=== PATIENT | male | born 1980 | race Caucasian/White ===

== ENCOUNTER → 2018-01-08 | Outpatient (CLI) | payer OTHER ==
[~2018-01-08] MED LIST: CELEBREX100 MG PO; FLONASE16 GM; GLIPIZIDE5 MG PO; LORAZEPAM2 MG PO; LYRICA75 MG PO; NEXIUM40 MG PO; NORCO 10-325 T1 EACH PO; ZOLOFT100 MG PO; farxiga PO
--- NOTE | 2018-01-08 18:27 | Diagnostic Imaging Report ---
Examination: MRI BRAIN WITHOUT CONTRAST History: Head and neck pain. Head trauma. Comparison studies: The images of the head CT performed on May 01, 2015 are inaccessible at this time, but the report is available for review. Technique: Sagittal T2; axial DWI, FLAIR, GRE or SWI, T1, Coronal FLAIR. Intravenous contrast: None Findings: Scalp: No abnormal signal. No masses. Bone marrow: Normal in signal intensity. Brain volume: Adequate for age. No volume loss. Ventricles: Normal in size and configuration. No hydrocephalus. Extra-axial spaces: No abnormalities. Parenchyma: No abnormal signal intensities. No masses, hemorrhage, or acute or chronic vascular insults. Suprasellar and sellar region: No abnormalities. Craniocervical junction: No abnormalities. The foramen magnum is patent. No Chiari malformations. Vessels: Normal flow-voids in the arteries and sinuses. Additional findings:Retention cysts within the bilateral maxillary and right frontal sinuses. Mild inflammatory mucosal thickening of the bilateral frontal sinuses and ethmoid air cells.. IMPRESSION: No intracranial abnormalities. Based on prior head CT report (May 01, 2015), there is no change. Signed by: Dr. Yecenia Ford M.D. on 01/08/2018 6:23 PM
== END ==
LOC: MRI 15:57
PROVIDERS: ATTEND Family Medicine
DX: F07.81 Postconcussional syndrome (principal); S16.1XXA Strain of muscle, fascia and tendon at neck level, initial encounter; S09.90XA Unspecified injury of head, initial encounter
CPT/HCPCS: 70551

== ENCOUNTER 2018-02-08 07:55 | Observation (INO) | payer OTHER ==
[2018-02-07 14:36] LABS: BASOPHILS # (AUTO) 0.1 (0.0-0.1); BASOPHILS % 0.6 % (0.0-1.0); EOSINOPHILS # (AUTO) 0.4 (0.0-0.4); EOSINOPHILS % 3.4 % (0.0-6.0); HEMATOCRIT 50.4 % (38.2-49.6); HEMOGLOBIN 16.8 g/dL (14.0-18.0); LYMPHOCYTES # (AUTO) 2.8 (1.0-3.2); LYMPHOCYTES % 21.5 % (18.0-39.1); MEAN CORPUSCULAR HEMOGLOBIN 28.6 pg (28-32); MEAN CORPUSCULAR HGB CONC 33.3 g/dL (31-35); MEAN CORPUSCULAR VOLUME 85.7 fL (81-99); MONOCYTES # (AUTO) 0.7 (0.2-0.8); MONOCYTES % 5.5 % (4.4-11.3); NEUTROPHILS # (AUTO) 8.8 (2.1-6.9); NEUTROPHILS % 68.7 % (38.7-80.0); PLATELET COUNT 234 x10e3/uL (140-360); RED BLOOD COUNT 5.88 x10e6/uL (4.3-5.7); RED CELL DISTRIBUTION WIDTH 14.5 % (11.7-14.4)
[2018-02-07 14:44] LABS: ANION GAP 12.5 mmol/L (8-16); BLOOD UREA NITROGEN 20 mg/dL (7-26); BUN/CREATININE RATIO 23 (6-25); CALCIUM 9.1 mg/dL (8.4-10.2); CARBON DIOXIDE 26 mmol/L (22-29); CHLORIDE 104 mmol/L (98-107); CREATININE, SERUM 0.86 mg/dL (0.72-1.25); EST GLOMERULAR FILTRATION RATE > 60 ML/MIN (60-); GLUCOSE 118 mg/dL (74-118); POTASSIUM 4.5 mmol/L (3.5-5.1); SODIUM 138 mmol/L (136-145)
--- NOTE | 2018-02-07 15:57 | Diagnostic Imaging Report ---
PROCEDURE: Frontal and lateral views of the chest. COMPARISON: None. INDICATIONS: PRE-OPERATIVE CHEST X-RAY FOR CERVICAL SPINE SURGERY FINDINGS: Lines/tubes: None. Lungs: The lungs are well inflated and clear. There is no evidence of pneumonia or pulmonary edema. Pleura: There is no pleural effusion or pneumothorax. Heart and mediastinum: The heart and the mediastinum are normal. Bones: No acute bony abnormality. Degenerative changes in the thoracic spine. IMPRESSION: 1. No acute cardiopulmonary abnormalities. Ellis Garcia M.D. Dictated by: Ellis Garcia M.D. on 02/07/2018 at 15:57 Electronically approved by: Ellis Garcia M.D. on 02/07/2018 at 15:57
[2018-02-07 16:07] LABS: INR 1.03; PARTIAL THROMBOPLASTIN TIME 29.9 seconds (23.8-35.5); PROTHROMBIN TIME 12.7 seconds (11.9-14.5)
[~2018-02-08] VITALS: Ht 180.3 cm; Wt 137.0 kg
[~2018-02-08 07:55] MED LIST changes: +BACITRACIN 50,000 UNIT VIAL ONE; +BUPIVACAINE 0.5%/EPI 30 ML SDV INJ ONE; +CEFAZOLIN SOD 2 GM/D5W 50ML 50 ML IV ONE; +CHLORZOXAZONE500 MG PO; +DIAZEPAM10 MG PO; +GELATIN SPONGE SZ 100 ONE; +IMITREX50 MG PO; +LIDOCAINE HCL (LTA) 4 ML SOLN ONE; +METFORMIN HCL1000 MG PO; +PROPRANOLOL HCL60 MG PO; +THROMBIN FOR SOLN 5,000 UNIT VIAL ONE; +VICTOZA 3-0.6 MG/0.1 INJ
--- OUTSIDE RECORDS SUMMARY | 2018-02-08 07:56 | XMS REPORT ---
Author [facility] Address Unknown Phone Unavailable Care Team Providers Care Hook Tender Name Role Phone UNKNOWN, REFFERING PP Unavailable ISRAEL NEVILLE Unavailable Unavailable ZOFIA DALEY Unavailable Unavailable ANTHONY, LOGAN Unavailable Unavailable Problems This patient has no known problems. Allergies, Adverse Reactions, Alerts This patient has no known allergies or adverse reactions. Medications This patient has no known medications. Results Test Description Test Time Test Comments Text Results Atomic Results Result Comments POC Glucose, Blood 2017-07-28 17:55:00 POC Glucose (test code=POCGLUC) 103 mg/dL 70-115 If you consider your patient critically ill, the Kristina Accu-Chek InformII metershould not be used for Glucose determinations.Draw a venous Glucose and send to the Main Lab for Analysis. POC Glucose, [id number] 15:54:00* Test Item Value Reference Range Comments POC Glucose (test code=POCGLUC) 103 mg/dL 70-115 If you consider your patient critically ill, the Kristina Accu-Chek InformII metershould not be used for Glucose determinations.Draw a venous Glucose and send to the Main Lab for Analysis. CHEST 2 VIEWS [place] [id number] [place] [address] Patient Name: RONALDO BILL MR #: [id number] : 1980 Age/Sex: 37/M Req #: [id number] Adm Physician: Ordered by: ISRAEL NEVILLE MD Report #: [id number] Location: OR Room/Bed: Procedure: [id number] DX/CHEST 2 VIEWS Exam Date: 02/07/18 Exam Time: 5 REPORT STATUS: Signed PROCEDURE: Frontal and lateral views of the chest. COMPARISON: None. INDICATIONS: PRE-OPERATIVE CHEST X- RAY FOR CERVICAL SPINE SURGERY FINDINGS: Lines/tubes: None. Lungs: The lungs are well inflated and clear. There is no evidence of pneumonia or pulmonary edema. Pleura: There is no pleural effusion or pneumothorax. Heart and mediastinum: The heart and the mediastinum are normal. Bones: No acute bony abnormality. Degenerative changes in the thoracic spine. IMPRESSION: 1. No acute cardiopulmonary abnormalities. Sukumar Garcia M.D. Dictated by: Sukumar Garcia M.D. on 02/07/2018 at 15:57 Electronically approved by: Sukumar Garcia M.D. on 02/07/2018 at 15:57 Dictated By: SUKUMAR GARCIA MD 56 Transcribed By: NICHOLAS on 02/07/181556 COPY TO: ISRAEL NEVILLE MD MRI BRAIN WO [place] [address] Patient Name: RONALDO BILL MR #: [id number] : 1980 Age/Sex: 37/M Req #: [id number] Adm Physician: Ordered by: ZOFIA DALEY DO Report #: [id number] Location: MRI Room/Bed: Procedure: [id number] MRI/ MRI BRAIN WO Exam Date: Exam Time: REPORT STATUS: Signed Examination: MRI BRAIN WITHOUT CONTRAST History: Head and neck pain. Head trauma. Comparison studies: The images of the head CT performed on May 01, 2015 are inaccessible at this time, but the report is available for review. Technique: Sagittal T2; axial DWI, FLAIR, GRE or SWI, T1, Coronal FLAIR. Intravenous contrast: None Findings: Scalp: No abnormal signal. No masses. Bone marrow: Normal in signal intensity. Brain volume: Adequate for age. No volume loss. Ventricles: Normal in size and configuration. No hydrocephalus. Extra-axial spaces: No abnormalities. Parenchyma: No abnormal signal intensities. No masses, hemorrhage, or acute or chronic vascular insults. Suprasellar and sellar region: No abnormalities. Craniocervical junction: No abnormalities. The foramen magnum is patent. No Chiari malformations. Vessels: Normal flow- voids in the arteries and sinuses. Additional findings:Retention cysts within the bilateral maxillary and right frontal sinuses. Mild inflammatory mucosal thickening of the bilateral frontal sinuses and ethmoid air cells.. IMPRESSION: No intracranial abnormalities. Based on prior head CT report (May 01, 2015), there is no change. Signed by: Dr. Yecenia Ford M.D. on 01/08/2018 6:23 PM Dictated By: YECENIA PUTNAM MD 22 Transcribed By: RIDGE on 01/08/181822 COPY TO: ZOFIA DALEY DO
[2018-02-08] MEDS ORDERED: LACTATED RINGER'S 1,000 ML IV SCH (11:34)
[2018-02-08] MEDS ORDERED: HYDROMORPHONE 2MG/ML INJ IV PRN (11:45)
[2018-02-08] MEDS ORDERED: NON-FORMULARY MEDICATION (Diazepam 10 MG) PO SCH (11:45)
[2018-02-08] MEDS ORDERED: LORAZEPAM 2 MG PO SCH (11:45)
[2018-02-08] MEDS ORDERED: ZOLPIDEM TARTRATE 5 MG TAB PO PRN (11:45)
[2018-02-08] MEDS ORDERED: MAGNESIUM/ALUMINUM/SIMETHICONE 30 ML UDC PO PRN (11:45)
[2018-02-08] MEDS ORDERED: PROMETHAZINE HCL (IM) 25 MG/ML VIAL IM PRN (11:45)
[2018-02-08] MEDS ORDERED: ACETAMINOPHEN 325 MG TAB PO PRN (11:45)
[2018-02-08] MEDS ORDERED: SUMATRIPTAN SUCCINATE 50 MG PO SCH (11:45)
[2018-02-08] MEDS ORDERED: MORPHINE SULFATE 5 MG/ML VIAL IM PRN (11:45)
[2018-02-08] MEDS ORDERED: CHLORZOXAZONE 500 MG PO SCH (11:45)
[2018-02-08] MEDS ORDERED: ONDANSETRON HCL INJ 2 MG/ML VIAL IV PRN (11:45)
[2018-02-08] MEDS ORDERED: FENTANYL CITRATE/PF 100MCG/2 ML INJ ONE ×2 (12:05→18:07)
[2018-02-08] MEDS ORDERED: SUMATRIPTAN SUCCINATE 25 MG TAB PO PRN (12:15)
[2018-02-08] MEDS ORDERED: DIAZEPAM 5 MG TAB PO PRN (12:15)
[2018-02-08] MEDS ORDERED: LORAZEPAM 1 MG TAB PO PRN (12:15)
[2018-02-08] MEDS ORDERED: LIRAGLUTIDE INJ PRN (12:30)
[2018-02-08] MEDS ORDERED: CHLORZOXAZONE PO PRN (12:30)
[2018-02-08 13:19] VITALS: BP 111/60
[2018-02-08] MEDS: OXYCODONE/ACETAMINOPHEN 5-325 1 EACH TABLET PO PRN ×3 (13:55→20:17)
[2018-02-08] MEDS ORDERED: CEFAZOLIN SOD 1 GM/NS 50ML 50 ML IV SCH (14:00)
[2018-02-08] MEDS: CARISOPRODOL 350 MG TAB PO PRN ×2 (14:02→19:05)
[2018-02-08 15:30] VITALS: BP 111/60
[2018-02-08 16:18] VITALS: BP 117/65
[2018-02-08] MEDS: GLIPIZIDE 5 MG TAB PO SCH (16:29)
[2018-02-08] MEDS: METFORMIN HCL 500 MG TAB CR PO SCH (16:29)
[2018-02-08] MEDS: PROPRANOLOL HCL 60 MG ER CAP PO SCH (16:29)
[2018-02-08] MEDS: CELECOXIB 200 MG CAP PO SCH (16:29)
--- NOTE | 2018-02-08 16:33 | Operative Report ---
DATE OF PROCEDURE: February 08, 2018 PREOPERATIVE DIAGNOSIS: C6-7 disk herniation with radiculopathy, M50.123. POSTOPERATIVE DIAGNOSIS: C6-7 disk herniation with radiculopathy, M50.123. PROCEDURES: 1. C6-7 anterior cervical diskectomy and microsurgical osteophyte resection and allograft fusion, 96157. 2. Preparation of MTF cortical cancellous allograft, 39401. 3. C6-7 anterior cervical plating with Synthes ZP endplate, 57934. ANESTHESIA: General. INDICATIONS: Patient is a man who presents with a C6-7 disk herniation with cervical radiculopathy on the left side that was taken to operating room for anterior cervical decompression and fusion. PROCEDURE: After induction of anesthesia, the patient was placed on the operating table in supine position. The right side of the neck was prepped and draped in sterile fashion. The fluoroscopic C-arm was positioned cross-table lateral orientation. A transverse incision was created on right side of the neck superimposed on the C6-7 disk space as determined by fluoroscopy. The platysma was divided in line with the incision. A subplatysmal dissection was carried out. An avascular plane of dissection was developed medial to the sternocleidomastoid muscle and was followed medial to the carotid sheath to the anterior border of the cervical spine. The deep cervical fascia was opened. The esophagus was retracted to the left. The attachments of longus colli muscles to the anterolateral aspects of vertebral bodies of C6 and C7 were divided. The anterior longitudinal ligament was resected. Dexter posts were inserted into C6 and C7. The Dexter distractor was used to distract the disk space. The anterior annulus of the disk was incised with a number 11 blade and the contents of the disks were thoroughly evacuated with angled curets and pituitary rongeurs. The posterior osteophytes were meticulously drilled with a 2 mm cutting bur until they were completely removed. The posterior annulus of the disk, herniated disk material, and the posterior longitudinal ligament were resected layer by layer until the dura was fully exposed and decompressed. The medial aspects of the uncinate processes were resected with particular attention given to the left side to fully expose and decompress the left C7 nerve root origin. After satisfactory decompression had been achieved, the endplates were prepared for fusion. The disk space was sized and found to be 9 mm in height. A piece of MTF cortical cancellous allograft measuring 9 mm was selected and prepared in saline and loaded onto a Synthes ZP endplate. The construct was inserted into the C6-7 disk space under distraction and fluoroscopic guidance and tamped in place until the plate was flush with the anterior margin of the vertebral bodies. The plate was then screwed to the endplates of C6 and C7 with 2 pairs of 16 mm screws. All screws were locked. An excellent construct was obtained. The wound was copiously irrigated with Bacitracin solution. Meticulous hemostasis was secured. Retractor was removed. The platysma was closed with 3-0 Vicryl sutures. The skin was closed with 4-0 Monocryl sutures in subcuticular fashion. Steri-Strips and dressing were applied. The patient was awakened, extubated, and taken to post anesthesia care unit in stable condition. No intraoperative complications were encountered. Estimated blood loss was 50 mL. Job#: [id number] EVERARDO
[2018-02-08] MEDS ORDERED: NON-FORMULARY MEDICATION (Metformin Hcl 1,000 MG) PO SCH (17:00)
[2018-02-08] MEDS: CEFAZOLIN SOD 1 GM VIAL IV SCH (17:00)
[2018-02-08] MEDS ORDERED: DEXAMETHASONE SOD PHOS INJ 4 MG/ML VIAL ONE (17:49)
[2018-02-08] MEDS ORDERED: PROPOFOL IV EMULSION 10 MG/ML 20 ML VIAL ONE (17:49)
[2018-02-08] MEDS ORDERED: ONDANSETRON HCL INJ 2 MG/ML VIAL ONE (17:49)
[2018-02-08] MEDS ORDERED: LIDOCAINE HCL 2% JELLY 5 ML TUBE ONE (17:49)
[2018-02-08] MEDS ORDERED: ROCURONIUM BROMIDE 10 MG/ML 5ML VIAL ONE (17:49)
[2018-02-08] MEDS ORDERED: LIDOCAINE HCL 2% LOCAL INJ 5 ML SDV VIAL INJ ONE (17:49)
[2018-02-08] MEDS ORDERED: DESFLURANE 240 ML BTL INH ONE (17:49)
[2018-02-08] MEDS ORDERED: NEOSTIGMINE 5 MG/5ML SYR ONE (17:49)
[2018-02-08] MEDS ORDERED: GLYCOPYRROLATE INJ 1MG/ 5 ML SYR ONE (17:49)
[2018-02-08] MEDS ORDERED: MIDAZOLAM HCL 2 MG/2 ML VIAL ONE (18:07)
[2018-02-08] MEDS ORDERED: NICOTINE 21 MG/EA PATCH TOP PRN (19:15)
[2018-02-08 20:00] VITALS: BP 118/63
[2018-02-08 21:00] VITALS: BP 118/63
[2018-02-08 23:45] VITALS: BP 124/69
[2018-02-09] MEDS: CEFAZOLIN SOD 1 GM VIAL IV SCH ×2 (01:52→10:05)
[2018-02-09] MEDS: CEPACOL SORE THROAT LOZENGES PO PRN ×2 (04:04→06:43)
[2018-02-09 04:05] VITALS: BP 116/63
[2018-02-09] MEDS: OXYCODONE/ACETAMINOPHEN 5-325 1 EACH TABLET PO PRN (06:43)
--- NOTE | 2018-02-09 07:01 | Diagnostic Imaging Report ---
C-SPINE 2 VIEWS AP LATERAL HISTORY: Postsurgical cervical spine COMPARISON: None FINDINGS: Bones: Patient is status post anterior fusion and stabilization of the cervicothoracic spine at C6-7. No displaced fracture. Osseous alignment is within normal limits. Joints: The joint spaces are well-maintained. Intervertebral disc spacer at C6-7 Soft tissues: Minimal prevertebral soft tissue edema IMPRESSION: No acute radiographic abnormality. Postsurgical cervical spine Signed by: Dr. Kedar Lopes M.D. on 02/09/2018 6:58 AM
[2018-02-09] MEDS: METFORMIN HCL 500 MG TAB CR PO SCH (08:29)
[2018-02-09] MEDS: CELECOXIB 200 MG CAP PO SCH (08:29)
[2018-02-09] MEDS: GLIPIZIDE 5 MG TAB PO SCH (08:29)
[2018-02-09] MEDS: PROPRANOLOL HCL 60 MG ER CAP PO SCH (08:29)
[2018-02-09 08:34] VITALS: BP 109/61
[2018-02-09] MEDS ORDERED: PANTOPRAZOLE SOD 40 MG TABEC PO SCH (09:00)
[2018-02-09] MEDS ORDERED: SERTRALINE HCL 100 MG TAB PO SCH (09:00)
[2018-02-09] MEDS ORDERED: FARXIGA PO SCH (09:00)
[2018-02-09] MEDS ORDERED: NON-FORMULARY MEDICATION (Liraglutide (Victoza 3-Pak) 1.8 MG) INJ SCH (09:00)
[2018-02-09] MEDS ORDERED: CELECOXIB 100 MG CAP PO SCH (09:00)
[2018-02-09] MEDS ORDERED: NORCO 7.5-3251 EACH PO (09:36)
== END 2018-02-09 11:22 | disposition home or self-care (01) ==
LOC: OR 07:55 → IMCU 12:50
PROVIDERS: ADMIT Neurological Surgery; ATTEND Neurological Surgery
DX: M50.123 Cervical disc disorder at C6-C7 level with radiculopathy (principal); E66.9 Obesity, unspecified; Z68.41 Body mass index [BMI] 40.0-44.9, adult; E11.9 Type 2 diabetes mellitus without complications; F17.210 Nicotine dependence, cigarettes, uncomplicated
CPT/HCPCS: 20931; 22551; 22845; 36415 ×3; 71046; 72040; 77003; 80048; 82948 ×2; 85025; 85610; 85730; 86850; 86900; 88304; 93005; G0378 ×2; J0690 ×2; J1100; J2001 ×2; J2250; J2405; C9359; J2270

== ENCOUNTER → 2018-03-08 | Outpatient (CLI) | payer BC, OTHER ==
[~2018-03-08] MED LIST changes: -BACITRACIN 50,000 UNIT VIAL ONE; -BUPIVACAINE 0.5%/EPI 30 ML SDV INJ ONE; -CEFAZOLIN SOD 2 GM/D5W 50ML 50 ML IV ONE; -GELATIN SPONGE SZ 100 ONE; -LIDOCAINE HCL (LTA) 4 ML SOLN ONE; +NORCO 7.5-3251 EACH PO; -THROMBIN FOR SOLN 5,000 UNIT VIAL ONE
--- NOTE | 2018-03-08 17:09 | Diagnostic Imaging Report ---
PROCEDURE:C-SPINE AP AND LAT WITH FLEX AND EXT COMPARISON:02/09/2018 INDICATIONS:POST FUSION FINDINGS: 5 views of the cervical spine (AP, lateral neutral, lateral extension, lateral flexion, odontoid view). The lateral view is visualized from the skull base to the top of C7. There has been an anterior discectomy and fusion at C6-C7. The vertebral bodies are well-aligned on the neutral view. There is about 2 mm of anterior subluxation of C3 on C4 on the flexion view. Otherwise no evidence of hypermobility There are no fractures, lytic or blastic lesions. The C1/C2-odontoid interval is normal. The pre-vertebral soft tissues are normal. CONCLUSION: Postsurgical changes of anterior discectomy and fusion at C6-C7. No evidence of loosening or other hardware complication. Minimal anterior subluxation of C3 on C4 on flexion view. Otherwise no evidence of hypermobility. Dictated by: Rich Caldwell M.D. on 03/08/2018 at 17:10 Electronically approved by: Rich Caldwell M.D. on 03/08/2018 at 17:10
== END ==
LOC: RAD 15:51
PROVIDERS: ATTEND Neurological Surgery
DX: M50.20 Other cervical disc displacement, unspecified cervical region (principal); Z98.1 Arthrodesis status
CPT/HCPCS: 72050

== ENCOUNTER → 2018-03-27 | Outpatient (CLI) | payer OTHER ==
--- NOTE | 2018-03-28 12:34 | Diagnostic Imaging Report ---
PROCEDURE: C-SPINE FLEX AND EXT COMPARISON: Patients [facility], DX, SPINE CERVICAL AP\T\LAT FLEX\T\EXT, 03/08/2018, 16:17. INDICATIONS: S/P CERVICAL FUSION FINDINGS: C1 through C7 are visualized on the lateral view. Mild reversal of the cervical lordosis may be related muscle spasm or positioning. Re-demonstration of status post anterior fusion of C6-C7 with metallic plate and transfixing screws which are intact and in adequate alignment. Flexion and extension views demonstrate no change in alignment. The prevertebral soft tissues are not swollen. CONCLUSION: Re-demonstration of status post anterior fusion of C6-C7. Intact hardware with adequate alignment. Angela Lopez M.D. Dictated by: Angela Lopez M.D. on 03/28/2018 at 12:36 Electronically approved by: Angela Lopez M.D. on 03/28/2018 at 12:36
== END ==
LOC: RAD 14:15
PROVIDERS: ATTEND Neurological Surgery
DX: M50.123 Cervical disc disorder at C6-C7 level with radiculopathy (principal)
CPT/HCPCS: 72052

== ENCOUNTER 2020-04-10 00:02 | Emergency (ER) | payer SELFPAY ==
[~2020-04-10] VITALS: Ht 180.3 cm; Wt 146.5 kg
--- OUTSIDE RECORDS SUMMARY | 2020-04-10 00:07 | XMS REPORT | Summary of Care ---
Author Author RONALDO KIRAN M.D. Organization Unknown Address [facility] Phone Unavailable Care Team Providers Care Aniline Press Worker Name Role Phone ZOFIA KIRAN M.D. Unavailable Unavailable DARYA PENA M.D. Unavailable Unavailable ZOFIA DALEY DO Unavailable Unavailable ZOFIA KIRAN JR, MD Unavailable Unavailable Unavailable Unavailable Functional Status Name Dates Details Functional status health issues are not documented Status: Name Dates Details Cognitive status health issues are not d ocumented Status: Problems Name Dates Details Hand pain, left (729.5, M79.642) Status: Active Carpal tunnel syndrome (354.0, G56.00) Status: Active Acute pain of left knee (719.46, M25.562 ) Status: Active Injury of posterior cruciate ligament of left knee, initial encounter (959.7, S89.92XA) Status: Active Tear of medial meniscus of left knee, cu rrent, unspecified tear type, initial encounter (836.0, S83.242A) Status: Active Sprain of posterior cruciate ligament of left knee, initial encounter (844.2, S83.522A) Status: Active Vestibular dysfunction (386.50, H83.2X9) Status: Active 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 Quantity: 30 DARYA PENA M.D. * Start : 14-Jul-2015 Active Lyrica 300 MG Oral Capsule * Refills: 0 Active CeleBREX 400 MG Oral Capsule * Refills: 0 Active Farxiga 5 MG Oral Tablet * Refills: 0 Active glipiZIDE ER 10 MG Oral Tablet Extended Release 24 Hour * Refills: 0 Active Zoloft 100 MG Oral Tablet * Refills: 0 Active Sertraline HCl TABS * Refills: 0 Active LORazepam 2 MG Oral Tablet * Refills: 0 Active Skelaxin 800 MG Oral Tablet * Refills: 0 Active metFORMIN HCl - 1000 MG Oral Tablet * Refills: 0 Active glipiZIDE XL TB24 * Refills: 0 Active Pantoprazole Sodium 40 MG Oral Tablet Delayed Release * Refills: 0 Active Topiramate 50 MG Oral Tablet * Refills: 0 Active Mirtazapine 30 MG Oral Tablet * Refills: 0 Active Amitriptyline HCl - 50 MG Oral Tablet * Refills: 0 Active Lyrica 300 MG Oral Capsule * Refills: 0 Active traMADol-Acetaminophen TABS * Refills: 0 Active Phenergan 25 MG TABS * Refills: 0 Active SUMAtriptan Succinate 50 MG Oral Tablet * Refills: 0 Active Allergies and Adverse Reactions Name Dates Details No Known Drug Allergies (Allergy) Status : Active Past Medical History Name Dates Details History of Back pain (724.5, M54.9) Status: Resolved History of Depression (311, F32.9) Status: Resolved History of Diabetes (250.00, E11.9) Status: Resolved Procedures Procedure Dates Details [U] XRAY KNEE 3 VWS LEFT [id number] Date: 10-Jul-2019 History of Carpal tunnel surgery Complet ed History of Cervical surgery Completed Immunization Name Dates Details Immunizations not documented Social History Name Dates Details - Status: Name Dates Details Current every day smoker Vital Signs Date Test Result Details No Known Vitals to report Results Date Description Value Details Results not documented Plan of Care Name Dates Details Planned Observations Planned Goals not documented Planned Encounters Appointment; ZOFIA KIRAN M.D. On: 05-Sep-2019 11:15 Interventions Provided Plan* Patient Education/Instructions: * Patient Education Provided * Reassurance * Counseling Provided. * MRI report reviewed and finding discussed with patient and family. * Surgery-risks, benefits, and alternatives were discussed with pt regarding operative intervention. Risks include but are not limited to pain, bleeding, scarring, infection, damage to nerves, arteries, veins, failure of procedure need for further procedures, nonunion, malunion, dislocation, loss of limb, heart attack, stroke and . Patient voiced understanding and wishes to proceed with operative intervention. * Weightbearing status:. * Patient/Parent to call or return with any abnormal changes * Apply Ice as Instructed * DME Orders: * Knee Brace * Walker/Crutches * NOT @ [facility] * Orders: * Physical Therapy * Medications:. * Referrals: * Refer to: ENT. * Reason: * Evaluate and treat. * Surgery: DISCUSSED LT KNEE SCOPE MMR * Follow Up: * Return to the clinic after testing or as needed. * Patient seen and examined by Physician. * Xray's reviewed with Physician Instructions Name Dates Details Instructions not documented Encounters Appointment; ZOFIA KIRAN M.D. Encounter Diagnosis: Problem not documented On: 11-Jul-2019 13:30 Appointment; ZOFIA KIRAN M.D. Encounter Diagnosis: Problem not documented On: 12-Aug-2019 11:00
--- OUTSIDE RECORDS SUMMARY | 2020-04-10 00:07 | XMS REPORT | Continuity of Care Document ---
Author Author [facility] t Organization [facility] Address [address] [place] [address] Phone Unavailable Care Team Providers Care Road Mender Name Role Phone JARED ROMERO, A ROBBIE PCP Unavailable ZOFIA KIRAN M.D. Attphys Unavailable SYDNEY, DR TRENT Attceli Unavailable ISRAEL NEVILLE Attphys Unavailable ZOFIA DALEY Attphys Unavailable LOGAN CRUZ Attphys Unavailable SYDNEY, DR TRENT Admphys Unavailable PAKZAASHLEY, ISRAEL Admphys Unavailable ANTHONY LOGAN Admphys Unavailable Payers Payer Name Policy Type Policy Number Effective Date Expiration Date Jovana boone [email or web address] [id number] 2017 00:00:00 [facility] Problems Condition Name Condition Details Condition Category Status Onset Date Resolution Date Last Treatment Date Treating Clinician Comments Source Hand pain, left Hand pain, left Problem Active [facility] Carpal tunnel syndrome Carpal tunnel syndrome Problem Active [facility] Acute pain of left knee Acute pain of left knee Problem Active [facility] Vestibular dysfunction Vestibular dysfunction Problem Active [facility] Tear of medial meniscus of left knee, cu rrent, unspecified tear type, initial encounter Tear of medial meniscus of left knee, cu rrent, unspecified tear type, initial encounter Problem Active [facility] Injury of posterior cruciate ligament of left knee, in itial encounter Injury of posterior cruciate ligament of left knee, initial encounter Problem Active [facility] History of Back pain History of Back pain Problem Resolved [facility] History of Depression History of Depression Problem Resolved [facility] History of Diabetes History of Diabetes Problem Resolved [facility] Sprain of posterior cruciate ligament of left knee, in itial encounter Sprain of posterior cruciate ligament of left knee, initial encounter Problem Active [facility] Maltracking of left patella Maltracking of left patella Problem Active [facility] Allergies, Adverse Reactions, Alerts This patient has no known allergies or adverse reactions. Social History Smoking Status Start Date Stop Date Source Current every day smoker [facility] Medications Ordered Medication Name Filled Medication Name Start Date Stop Da te Current Medication? Ordering Clinician Indication Dosage Frequency Signature (SIG) Comments Components Source Meloxicam 7.5 MG Oral Tablet Meloxicam 7.5 MG Oral Tablet 2015-07- 8 00:00:00 Yes DARYA PENA M.D. 1 QD TAKE 1 TABLET DAILY. [facility] Lyrica 300 MG Oral Capsule Lyrica 300 MG Oral Capsule Yes [facility] CeleBREX 400 MG Oral Capsule CeleBREX 400 MG Oral Capsule Yes [facility] Farxiga 5 MG Oral Tablet Farxiga 5 MG Oral Tablet Yes [facility] glipiZIDE ER 10 MG Oral Tablet Extended Release 24 Selina r glipiZIDE ER 10 MG Oral Tablet Extended Release 24 Hour Yes [facility] Zoloft 100 MG Oral Tablet Zoloft 100 MG Oral Tablet Yes [facility] Sertraline HCl TABS Sertraline HCl TABS Yes [facility] LORazepam 2 MG Oral Tablet LORazepam 2 MG Oral Tablet Yes [facility] Skelaxin 800 MG Oral Tablet Skelaxin 800 MG Oral Tablet Yes [facility] metFORMIN HCl - 1000 MG Oral Tablet metFORMIN HCl - 1000 MG Oral Tabl et Yes [facility] glipiZIDE XL TB24 glipiZIDE XL TB24 Yes [facility] Pantoprazole Sodium 40 MG Oral Tablet Delayed Release Pantoprazole Sodium 40 MG Oral Tablet Delayed Release Yes [facility] Topiramate 50 MG Oral Tablet Topiramate 50 MG Oral Tablet Yes [facility] Mirtazapine 30 MG Oral Tablet Mirtazapine 30 MG Oral Tablet Ye s [facility] Amitriptyline HCl - 50 MG Oral Tablet Amitriptyline HCl - 50 MG Ora l Tablet Yes [facility] Lyrica 300 MG Oral Capsule Lyrica 300 MG Oral Capsule Yes [facility] traMADol-Acetaminophen TABS traMADol-Acetaminophen TABS Yes [facility] Phenergan 25 MG TABS Phenergan 25 MG TABS Yes [facility] SUMAtriptan Succinate 50 MG Oral Tablet SUMAtriptan Succinat e 50 MG Oral Tablet Yes [facility] Celecoxib (Celebrex*) 100 Mg Capsule Celecoxib (Celebrex*) 100 Mg C apsule Yes 400 Daily [facility] Chlorzoxazone 500 Mg Tablet Chlorzoxazone 500 Mg Tablet Yes 500 As Needed [facility] Diazepam 10 Mg Tablet Diazepam 10 Mg Tablet Yes 10 As Needed [facility] Esomeprazole Magnesium (Nexium) 40 Mg Capsule.dr Barrera prazole Magnesium (Nexium) 40 Mg Capsule. Yes 40 Daily [facility] Farxiga Farxiga Yes 10 Daily [facility] Glipizide 5 Mg Tablet Glipizide 5 Mg Tablet Yes 10 Twice A Day [facility] Hydrocodone Bit/Acetaminophen (Hopkins 7.5-325 Tablet) 1 Each Tablet Hydrocodone Bit/Acetaminophen (Hopkins 7.5-325 Tablet) 1 Each Tablet Yes 1 Every 6 Hours as needed for Pain [facility] Hydrocodone Bit/Acetaminophen (Hopkins 7.5-325 Tablet) 1 Each Tablet Hydrocodone Bit/Acetaminophen (Hopkins 7.5-325 Tablet) 1 Each Tablet Yes 2 Every 6 Hours as needed for Pain [facility] Liraglutide (Victoza 3-Vinh) 0.6 Mg/0.1 Ml Pen.injctr L iraglutide (Victoza 3-Vinh) 0.6 Mg/0.1 Ml Pen.injctr Yes 1.8 Daily [facility] Lorazepam 2 Mg Tablet Lorazepam 2 Mg Tablet Yes 2 Qd-Bid [facility] Metformin Hcl 1,000 Mg Tablet Metformin Hcl 1,000 Mg Tablet Yes 1000 Twice A Day [facility] Propranolol Hcl 60 Mg Cap.sa.24h Propranolol Hcl 60 Mg Cap.sa.24h Yes 60 Twice A Day [facility] Sertraline Hcl (Zoloft) 100 Mg Tablet Sertraline Hcl (Zoloft) 100 M g Tablet Yes 200 Daily [facility] Sumatriptan Succinate (Imitrex) 50 Mg Tablet Sumatript an Succinate (Imitrex) 50 Mg Tablet Yes 50 As Needed [facility] Fluticasone Propionate (Flonase) 16 Gm [place].susp, 16 Gm Nasal Fluticasone Propionate (Flonase) 16 Gm [place].susp, 16 Gm Nasal 2018-02-07 00:00:0 0 No 16 [facility] Hydrocodone Bit/Acetaminophen (Hopkins 10- 325 Tablet) 1 Each Tablet, 10-325 Mg Oral Hydrocodone Bit/Acetaminophen (Hopkins 10- 325 Tablet) 1 Each Tablet, 10-325 Mg Oral 2018-02-07 00:00:00 No 10 Every 8 Hours as needed for Pain [facility] Pregabalin (Lyrica) 75 Mg Cap, 300 Mg Oral Pregabalin (Lyrica) 75 Mg Cap, 300 Mg Oral 2018-02-07 00:00:00 No 300 Twice A Day [facility] Procedures Procedure Date / Time Performed Performing Clinician [facility] e [U] XRAY KNEE 3 VWS LEFT [id number] 2019-07-10 00:00:00 [facility] Anterior cervical discectomy 2018-02-08 00:00:00 MARTIN NEVILLE [facility] X-ray of chest, two views 2018-02-07 00:00:00 ISRAEL NEVILLE [facility] Magnetic resonance imaging of brain without contrast 2018-01 00:00:00 ZOFIA DALEY [facility] History of Carpal tunnel surgery [facility] History of Cervical surgery [facility] Encounters Start Date/Time End Date/Time Encounter Type Admission Type Attendi [facility] Facility Care Department Encounter ID Source 2019-08-12 11:00:00 2019-08-12 11:00:00 Appointment; ZOFIA KIRAN M.D. CRUMBIE, DAVID, M.D. [facility] Orthopedics [facility] [id number] [facility] 2019-07-11 13:30:00 2019-07-11 13:30:00 Appointment; ZOFIA KIRAN M.D. CRUMBIE, DAVID, M.D. [facility] Orthopedics [facility] [id number] [facility] 2018-10-24 06:55:00 2018-10-24 10:45:[address] [facility] [id number] [facility] 2018-02-08 12:50:00 2018-02-09 11:22:00 Discharged Inpatient (obs) ISRAEL PADGETT [facility] [id number] [facility] 2018-01-08 15:57:00 2018-01-08 15:57:00 Registered Clinic DEX ZOFIA DALEY [facility] [id number] [facility] Results Test Description Test Time Test Comments Results Result Comments Source GLUCOMETER GLUCOSE- LAB USE ONLY 2018-10-24 11:19:00 Test Item GLUCOMETER (test code = GMG) 205 mg/dL 70-100 H Meter ID: [id number]: [id number] [address] MAXWELL GLUCOMETER GLUCOSE- LAB USE [id number] 07:41:00* Test Item Value Reference Range Interpretation Comments GLUCOMETER (test code = GMG) 219 mg/dL 70-100 H DONEMeter ID: [id number]: [id number] [address] Bedside Jyenkaf3374-29-58 08:25:00* Test Item Value Reference Range Interpretation Comments Bedside Glucose (test code = 33449-1) 171 70-120 H Meter ID: [id number] [facility] HospitalProthrombin Time 2018-02-07 16:07:00* Test Item Value Reference Range Interpretation Comments Prothrombin Time (test code = 5902-2) 12.7 11.9-14.5 [facility]Prothromb Time International Ratio 2018-02-07 16:07:00* Test Item Value Reference Range Interpretation Comments Prothromb Time International Ratio (test code = 6301-6) 1.03 Oral Anticoagulant Therapy INR Values:1. Low Intensity Therapy 1.5 - 2.02 . Moderate Intensity Therapy 2.0 - 3.03. High Intensity Therapy(1) 2.5 - 3. 54. High Intensity Therapy(2) 3.0 - 4.05. Panic Value INR > 5.0 [facility] CenterActivated Partial Thromboplast Time 2018-02-07 16:07:00* Test Item Value Reference Range Interpretation Comments Activated Partial Thromboplast Time (test code = 30098-3) 29.9 23.8-35.5 [facility] Fpyfl2617-72-56 14:44:00* Test Item Value Reference Range Interpretation Comments Sodium Level (test code = 2951-2) 138 136-145 [facility] CenterPotassium [id number] 14:44:00* Test Item Value Reference Range Interpretation Comments Potassium Level (test code = 2823-3) 4.5 3.5-5.1 [facility] CenterChloride Klhxn9633-59-59 14:44:00* Test Item Value Reference Range Interpretation Comments Chloride Level (test code = 2075-0) 104 98-107 [facility] CenterCarbon Dioxide Rqsdp3195-04-71 14:44:00* Test Item Value Reference Range Interpretation Comments Carbon Dioxide Level (test code = 2028-9) 26 22-29 [facility] CenterAnion [id number] 14:44:00* Test Item Value Reference Range Interpretation Comments Anion Gap (test code = 35438-4) 12.5 8-16 [facility] CenterBlood Urea Gosiqkla3320-54-35 14:44:00* Test Item Value Reference Range Interpretation Comments Blood Urea Nitrogen (test code = 3094-0) 20 7-26 [facility] CenterCreatinine2018-04-04 14:44:00* Test Item Value Reference Range Interpretation Comments Creatinine (test code = 2160-0) 0.86 0.72-1.25 [facility] CenterBUN/Creatinine Bobxr5454-65-26 14:44:00* Test Item Value Reference Range Interpretation Comments BUN/Creatinine Ratio (test code = 3097-3) 23 6-25 [facility] CenterEstimat Glomerular Filtration Rate 2018-02-07 14:44:00* Test Item Value Reference Range Interpretation Comments Estimat Glomerular Filtration Rate (test code = 78585-0) 60- >60 Ranges were taken from the National Kidney Disease Education Program and the [facility], [facility] Kidney Foundation literature.Reference ranges:60 or greater: Fdpzhu34-73 ( for 3 consecutive months): Chronic kidney disease 15 or less: Kidney failureCHI [facility] SouthGlucose Ypfef8582-60-86 14:44:00* Test Item Value Reference Range Interpretation Comments Glucose Level (test code = UHD7413) 118 74-118 [facility] CenterCalcium [id number] 14:44:00* Test Item Value Reference Range Interpretation Comments Calcium Level (test code = 96896-3) 9.1 8.4-10.2 [facility] CenterWhite Blood Lqpgp5666-25-81 14:38:00* Test Item Value Reference Range Interpretation Comments White Blood Count (test code = 6690-2) 12.82 4.8-10.8 H [facility] CenterRed Blood Glsme5436-91-71 14:38:00* Test Item Value Reference Range Interpretation Comments Red Blood Count (test code = 789-8) 5.88 4.3-5.7 H [facility] CenterHemoglobin2018-04-04 14:38:00* Test Item Value Reference Range Interpretation Comments Hemoglobin (test code = 92483-7) 16.8 14.0-18.0 [facility] CenterHematocrit2018-04-04 14:38:00* Test Item Value Reference Range Interpretation Comments Hematocrit (test code = 4544-3) 50.4 38.2-49.6 H [facility] CenterMean Corpuscular Bwlqcb3289-45-44 14:38:00* Test Item Value Reference Range Interpretation Comments Mean Corpuscular Volume (test code = 787-2) 85.7 81-99 [facility] CenterMean Corpuscular Eemruycjmg0455-51-10 14:38:00* Test Item Value Reference Range Interpretation Comments Mean Corpuscular Hemoglobin (test code = 785-6) 28.6 28-32 [facility] CenterMean Corpuscular Hemoglobin Concent 2018-02-07 14:38:00* Test Item Value Reference Range Interpretation Comments Mean Corpuscular Hemoglobin Concent (test code = 786-4) 33.3 31-35 [facility] CenterRed Cell Distribution [id number] 14:38:00* Test Item Value Reference Range Interpretation Comments Red Cell Distribution Width (test code = 55312-9) 14.5 11.7 -14.4 H [facility] CenterPlatelet Sngos9889-48-75 14:38:00* Test Item Value Reference Range Interpretation Comments Platelet Count (test code = 777-3) 234 140-360 [facility] CenterNeutrophils (%) (Auto)2018-02-07 14:38:00 * Test Item Value Reference Range Interpretation Comments Neutrophils (%) (Auto) (test code = 58362-6) 68.7 38.7-80.0 [facility] CenterLymphocytes (%) (Auto)2018-02-07 14:38:00 * Test Item Value Reference Range Interpretation Comments Lymphocytes (%) (Auto) (test code = 736-9) 21.5 18.0-39.1 [facility] CenterMonocytes (%) (Auto)2018-02-07 14:38:00* Test Item Value Reference Range Interpretation Comments Monocytes (%) (Auto) (test code = 5905-5) 5.5 4.4-11.3 [facility] CenterEosinophils (%) (Auto)2018-02-07 14:38:00 * Test Item Value Reference Range Interpretation Comments Eosinophils (%) (Auto) (test code = 713-8) 3.4 0.0-6.0 [facility] CenterBasophils (%) (Auto)2018-02-07 14:38:00* Test Item Value Reference Range Interpretation Comments Basophils (%) (Auto) (test code = 706-2) 0.6 0.0-1.0 [facility] CenterIM GRANULOCYTES %2018-02-07 14:38:00* Test Item Value Reference Range Interpretation Comments IM GRANULOCYTES % (test code = IM GRANULOCYTES %) 0.3 0.0- 1.0 [facility] CenterNeutrophils # (Auto)2018-02-07 14:38:00* Test Item Value Reference Range Interpretation Comments Neutrophils # (Auto) (test code = 751-8) 8.8 2.1-6.9 H [facility] CenterLymphocytes # (Auto)2018-02-07 14:38:00* Test Item Value Reference Range Interpretation Comments Lymphocytes # (Auto) (test code = 72206-7) 2.8 1.0-3.2 [facility] CenterMonocytes # (Auto)2018-02-07 14:38:00* Test Item Value Reference Range Interpretation Comments Monocytes # (Auto) (test code = 742-7) 0.7 0.2-0.8 [facility] CenterEosinophils # (Auto)2018-02-07 14:38:00* Test Item Value Reference Range Interpretation Comments Eosinophils # (Auto) (test code = 711-2) 0.4 0.0-0.4 [facility] CenterBasophils # (Auto)2018-02-07 14:38:00* Test Item Value Reference Range Interpretation Comments Basophils # (Auto) (test code = 704-7) 0.1 0.0-0.1 [facility] CenterAbsolute Immature Granulocyte (auto 2018-02-07 14:38:00* Test Item Value Reference Range Interpretation Comments Absolute Immature Granulocyte (auto (gerardo t code = Absolute Immature Granulocyte (auto) 0.04 0-0.1 [facility] CenterPOC Glucose, Fymot8499-38-05 17:55:00* Test Item Value Reference Range Interpretation Comments POC Glucose (test code = POCGLUC) 103 mg/dL 70-115 N If you consider your patient critically ill, the Kristina Accu-Chek InformII metershould not be used for Glucose determinations.Draw a venous Glucose and send to the Main Lab for Analysis. POC Glucose, Ndtrg6943-66-25 15:54:00* Test Item Value Reference Range Interpretation Comments POC Glucose (test code = POCGLUC) 103 mg/dL 70-115 N If you consider your patient critically ill, the Kristina Accu-Chek InformII metershould not be used for Glucose determinations.Draw a venous Glucose and send to the Main Lab for Analysis. C-SPINE COMP. W/FLEX EXT [facility] [address] [address] Patient Name: RONALDO BILL MR #: [id number] : 1980 Age/Sex: 37/M Req #: [id number] Adm Physician: Ordered by: ISRAEL NEVILLE MD Report #: [id number] Location: [facility] Room/Bed: Procedure: [id number] DX/C-SPINE COMP. W/FLEX EXT Exam Date: 03/27/18 Exam Time: 1428 REP ORT STATUS: Signed PROCEDURE: C-SPINE FLEX AND EXT COMPARISON: [facility], DX, SPINE CERVICAL AP T LAT FLEX T EXT, 03/08/2018, 16:17 . INDICATIONS: S/P CERVICAL FUSION FINDINGS: C1 through C7 are visualized on the lateral view. Mild reversal of the cervical lordosis m ay be related muscle spasm or positioning. Re-demonstration of status post an terior fusion of C6-C7 with metallic plate and transfixing screws which are i ntact and in adequate alignment. Flexion and extension views demonstrate no change in alignment. The prevertebral soft tissues are not swollen. CONCLUSION: Re-demonstration of status post anterior fusion of C6-C7. I ntact hardware with adequate alignment. Angela Katz M.D. Dictated by: Angela Katz M.D. on 03/28/2018 at 12:36 Electr onically approved by: Angela Katz M.D. on 03/28/2018 at 12:36 Dictated By: JAMARI KATZ MD, MD 1236 Transcribed By: NICHOLAS on 03/28/18 1236 COPY TO: ISRAEL NEVILLE MD SPINE CERVICAL [facility] [address] Patient Name: RONALDO BILL MR #: [id number] : 1980 Age/Sex: 37/M Req #: [id number] Adm Physician: Ordered by: ISRAEL NEVILLE MD Report #: [id number] Location: [facility]/Bed: Procedure: [id number] DX/SPINE CERVICAL AP LA T FLEX EXT Exam Date: 03/08/18 Exam Time: 1615 REPORT STATUS: Signed PROCEDURE: C-SPINE AP AND LAT WITH FLEX AND EXT COMPARISON: 02/09/2018 INDICATIONS: POST FUSION FINDINGS: 5 views of the cervical spine (AP, lateral neutral, lateral extension, latera l flexion, odontoid view). The lateral view is visualized from the skull b ase to the top of C7. There has been an anterior discectomy and fusion at C6-C7. The vertebral bodies are well-aligned on the neutral view. There is a bout 2 mm of anterior subluxation of C3 on C4 on the flexion view. Otherwise no evidence of hypermobility There are no fractures, lytic or blastic l esions. The C1/C2-odontoid interval is normal. The pre-vertebral soft tissues are normal. CONCLUSION: Postsurgical changes of anterior discectomy and fusion at C6-C7. No evidence of loosening or other hardware complication . Minimal anterior subluxation of C3 on C4 on flexion view. Otherwise no evidence of hypermobility. Dictated by: Lisa Caldwell M.D. on 03/08/20 18 at 17:10 Electronically approved by: Lisa Caldwell M.D. on 8 at 17:10 Dictated By: LISA CALDWELL MD Electronically Si gned By: LISA CALDWELL MD on 03/08/181709 Transcribed By: NICHOLAS on 03/08/181709 COPY TO: ISRAEL NEVILLE MD C-SPINE 2 VIEWS AP LATERAL [place] [address] Patient Name: RONALDO BILL MR #: [id number] OB: 1980 Age/Sex: 37/M Req #: [id number] Adm Physic eulogio: ISRAEL NEVILLE MD Ordered by: ISRAEL NEVILLE MD Report #: [id number] Location: [facility] Room/Bed: [place] [address] Procedure: [id number] DX/C-SPINE 2 VIEWS AP LATERAL Exam Date: 02/09/18 Exam Time: 0630 REPORT STATUS: Signed C-SPINE 2 VIEWS AP LATERA L HISTORY: Postsurgical cervical spine COMPARISON: None FIN DINGS: Bones: Patient is status post anterior fusion and stabilization of th e cervicothoracic spine at C6-7. No displaced fracture. Osseous alignmen t is within normal limits. Joints: The joint spaces are well-maintained. Intervertebral disc spacer at C6-7 Soft tissues: Minimal prevertebral sof t tissue edema IMPRESSION: No acute radiographic abnormality. Posts urgical cervical spine Signed by: Dr. Kedar Lopes M.D. on 02/09/2018 6:58 AM Dictated By: KEDAR COREY MD 7 Transcribed By: RIDGE on 02/09/18657 COPY TO: ISRAEL NEVILLE MD CHEST [address], [place] [address] Patient Name: RONALDO BILL MR #: [id number] : 1980 Age/Sex: 37/M Req #: [id number] Adm Physician: Ordered by: ISRAEL NEVILLE MD Report #: [id number] Location: [place] Room/Bed: Procedure: [id number] DX/CHEST 2 VIEWS Exam D ate: 02/07/18 Exam Time: 1425 REPORT STATUS: Si gned PROCEDURE: Frontal and lateral views of the chest. COMPARISON: N one. INDICATIONS: PRE-OPERATIVE CHEST X-RAY FOR CERVICAL SPINE SURGERY FINDINGS: Lines/tubes: None. Lungs: The lungs are well inflat ed and clear. There is no evidence of pneumonia or pulmonary edema. Ple ura: There is no pleural effusion or pneumothorax. Heart and mediastinum: The heart and the mediastinum are normal. Bones: No acute bony abnormal ity. Degenerative changes in the thoracic spine. IMPRESSION: 1. No acute cardiopulmonary abnormalities. Fredrick Cobb ictated by: Ellis Graay M.D. on 02/07/2018 at 15:57 Electronically approved by: Ellis Garay M.D. on 02/07/2018 at 15:57 D ictated By: ELLIS GARAY MD 4437 COPY TO: MC NEVILLE MD MRI BRAIN [place] [address] [place] [address] Patient Name: RONALDO BILL MR #: [id number] : 1980 Age/Sex: 37/M Req #: [id number] Adm Physician: Ordered by: ZOFIA DALEY DO Report #: [id number] Location: MRI Room/Bed: Procedure: [id number] MRI/MRI BRAIN WO Exam Alen e: Exam Time: REPORT STATUS: Signed Examin ation: MRI BRAIN WITHOUT CONTRAST History: Head and neck pain. Head trauma. Comparison studies: The images of the head CT performed on May 01, 2015 are i naccessible at this time, but the report is available for review. Technique : Sagittal T2; axial DWI, FLAIR, GRE or SWI, T1, Coronal FLAIR. Intravenous contrast: None Findings: Scalp: No abnormal signal. No masses. Bon e marrow: Normal in signal intensity. Brain volume: Adequate for age. No v olume loss. Ventricles: Normal in size and configuration. No hydrocephalus. Extra-axial spaces: No abnormalities. Parenchyma: No abnormal si gnal intensities. No masses, hemorrhage, or acute or chronic vascular insults. Suprasellar and sellar region: No abnormalities. Craniocervical junction : No abnormalities. The foramen magnum is patent. No Chiari malformations. V essels: Normal flow-voids in the arteries and sinuses. Additional findings: Retention cysts within the bilateral maxillary and right frontal sinuses. Mild inflammatory mucosal thickening of the bilateral frontal sinuses and ethmoid air cells.. IMPRESSION: No intracranial abnormalities. Based on prior head CT report (May 01, 2015), there is no change. Signed by: Dr. Cricket Ford M.D. on 01/08/2018 6:23 PM Dictated By: SEBASTIAN Paez MD 5568 Tr anscribed By: RIDGE on 01/08/18 8359 COPY TO: ZOFIA DALEY DO
--- NOTE | 2020-04-10 01:26 | Emergency Department Note ---
History of Present Illnes History of Present Illness Chief Complaint: Eye, Ear, Nose, Throat, Dental History of Present Illness This is a 39 year old male presents with complaining of bumps behind both ears that are painful to touch. Also reports his had some redness along the back of his scalp as well. Patient denies fever. Patient also reports that both of his ears hurt. . Historian: Patient Arrival Mode: Car Onset (how long ago): day(s) (2) Location: BILATERAL EARS Quality: PAIN AND TENDER BUMPS BEHIND EARS. Radiation: non-radiation Severity: moderate Onset quality: gradual Duration (how long): day(s) (2) Timing of current episode: constant Progression: worsening Chronicity: new Context: recent illness Relieving factors: none Exacerbating factors: none Associated symptoms: denies other symptoms Treatments prior to arrival: none Past Medical/Family History Physician Review I have reviewed the patient's past medical and family history. Any updates have been documented here. Past Medical History Recent Fever: No Clinical Suspicion of Infectio: No New/Unexplained Change in Ment: No Past Medical History: Diabetes, Anxiety, Depression, GERD Other Medical History: SLEEP APNEA INSOMNIA HEAD INJURY Other Surgery: CARPAL TUNNEL SX X3 NECK FUSION X2 SEVERED NERVES Social History Smoking Cessation: Never Smoker Alcohol Use: Occasional Any Illegal Drug Use: No Other Last Tetanus: OOD Review of Systems Review of Systems Constitutional: no symptoms EENTM: as per HPI Cardiovascular: no symptoms Respiratory: no symptoms Gastrointestinal: no symptoms Genitourinary: no symptoms Musculoskeletal: no symptoms Neurological: no symptoms Psychological: no symptoms Endocrine: no symptoms Hematological/Lymphatic: no symptoms Review of other systems All other systems reviewed and negative. Physical Exam Related Data Allergies: Coded Allergies: No Known Allergies (Unverified , 05/01/15) Triage Vital Signs Vital Signs Date Time Temp Pulse Resp B/P (MAP) Pulse Ox O2 Delivery O2 Flow Rate FiO2 04/10/20 01:03 99.7 108 20 134/84 98 Vital signs reviewed: Yes Physical Exam CONSTITUTIONAL Constitutional: well-developed, well-nourished HENT HENT: normocephalic, atraumatic, oropharynx clear/moist, nose normal, other (BILATERAL TENDER, ENLARGED POST AURICULAR LYMPHADENOPATHY PRESENT, LEFT GREATER THAN RIGHT) HENT L/R: left TM normal, right TM normal, left canal normal, right canal normal, left ext ear normal, right ext ear normal EYES Eyes: PERRL, conjunctivae normal NECK Neck: ROM normal PULMONARY Pulmonary: effort normal, breath sounds normal CARDIOVASCULAR Cardiovascular: regular rhythm, heart sounds normal, capillary refill normal, normal rate GASTROINTESTINAL Abdominal: soft, nontender, bowel sounds normal GENITOURINARY Genitourinary: exam deferred SKIN Skin: warm, dry, other (bilateral posterior auricular erythema) MUSCULOSKELETAL Musculoskeletal: ROM normal NEUROLOGICAL Neurological: alert, oriented x 3, no gross motor or sensory deficits PSYCHOLOGICAL Psychological: mood/affect normal, judgement normal Results Laboratory Laboratory Laboratory Tests Test 04/10/20 01:45 White Blood Count 10.76 x10e3/uL (4.8-10.8) Red Blood Count 6.03 x10e6/uL (4.3-5.7) Hemoglobin 16.3 g/dL (14.0-18.0) Hematocrit 50.3 % (38.2-49.6) Mean Corpuscular Volume 83.4 fL (81-99) Mean Corpuscular Hemoglobin 27.0 pg (28-32) Mean Corpuscular Hemoglobin Concent 32.4 g/dL (31-35) Red Cell Distribution Width 13.9 % (11.7-14.4) Platelet Count 205 x10e3/uL (140-360) Neutrophils (%) (Auto) 62.0 % (38.7-80.0) Lymphocytes (%) (Auto) 27.5 % (18.0-39.1) Monocytes (%) (Auto) 7.6 % (4.4-11.3) Eosinophils (%) (Auto) 2.0 % (0.0-6.0) Basophils (%) (Auto) 0.6 % (0.0-1.0) Neutrophils # (Auto) 6.7 (2.1-6.9) Lymphocytes # (Auto) 3.0 (1.0-3.2) Monocytes # (Auto) 0.8 (0.2-0.8) Eosinophils # (Auto) 0.2 (0.0-0.4) Basophils # (Auto) 0.1 (0.0-0.1) Absolute Immature Granulocyte (auto 0.03 x10e3/uL (0-0.1) Sodium Level 132 mmol/L (136-145) Potassium Level 4.3 mmol/L (3.5-5.1) Chloride Level 101 mmol/L (98-107) Carbon Dioxide Level 21 mmol/L (22-29) Anion Gap 14.3 mmol/L (8-16) Blood Urea Nitrogen 12 mg/dL (7-26) Creatinine 1.19 mg/dL (0.72-1.25) Estimat Glomerular Filtration Rate > 60 ML/MIN (60-) BUN/Creatinine Ratio 10 (6-25) Glucose Level 554 mg/dL (74-118) Calcium Level 9.8 mg/dL (8.4-10.2) Lab results reviewed: Yes Imaging Imaging results reviewed: Yes Impressions IMPRESSION: CT head and temporal bone: 1. Mild bilateral temporal scalp and right periauricular soft tissue cellulitis. No discrete abscess. 2. No acute intracranial abnormality. 3. Polypoid mucosal thickening in right more than left maxillary sinuses. 4. No signs of acute mastoiditis. Critical Care Time Subsequent provider I assumed direction of critical care for this patient from another provider of my specialty. Assessment & Plan Assessment & Plan Final Impression: (1) CELLULITIS OF HEAD [ANY PART, EXCEPT FACE] (2) TYPE 2 DIABETES MELLITUS WITH HYPERGLYCEMIA Assessment & Plan Patient with bilateral ear pain and posterior auricular lymphadenopathy. CBC BMP and CT of head with contrast ordered to eval for mastoiditis. Patient's blood sugar was 556. 1 L normal saline bolus ordered 12 units of regular insulin subcutaneous ordered. Patient found to have mild bilateral scalp cellulitis. Discussed treatment options with patient. Patient states he would like to go home and do oral antibiotics. So at this time we'll give 1 g of vancomycin IV and the patient will be discharged on doxycycline 100 mg by mouth twice a day for 14 days. Patient instructed to return should he start running high fever symptoms get worse or any other concerns. Last Vital Signs Date Time Temp Pulse Resp B/P (MAP) Pulse Ox O2 Delivery O2 Flow Rate FiO2 04/10/20 01:03 99.7 108 20 134/84 98 Home Meds Reported Medications Hydrocodone Bit/Acetaminophen (NORCO 7.5-325 TABLET) 1 Each Tablet, 2 EA PO Q6H PRN for PAIN, TAB 02/09/18 Hydrocodone Bit/Acetaminophen (NORCO 7.5-325 TABLET) 1 Each Tablet, 1 EA PO Q6H PRN for PAIN, TAB 02/09/18 Chlorzoxazone (CHLORZOXAZONE) 500 Mg Tablet, 500 MG PO PRN 02/07/18 Sumatriptan Succinate (IMITREX) 50 Mg Tablet, 50 MG PO PRN 02/07/18 Diazepam (DIAZEPAM) 10 Mg Tablet, 10 MG PO PRN 02/07/18 Metformin Hcl (METFORMIN HCL) 1,000 Mg Tablet, 1000 MG PO BID 02/07/18 Propranolol Hcl (PROPRANOLOL HCL) 60 Mg Cap.sa.24h, 60 MG PO BID 02/07/18 Liraglutide (VICTOZA 3-ROBERTO) 0.6 Mg/0.1 Ml Pen.injctr, 1.8 MG INJ DAILY 02/07/18 Esomeprazole Magnesium (NEXIUM) 40 Mg Capsule.dr, 40 MG PO DAILY PROTONIX THERAPEUTIC SUBSTITUTE FOR NEXIUM PER [facility] 05/01/15 Lorazepam (LORAZEPAM) 2 Mg Tablet, 2 MG PO QD-BID 05/01/15 Sertraline Hcl (ZOLOFT) 100 Mg Tablet, 200 MG PO DAILY [facility]01[facility]15 [facility] No Conflict Check, 10 MG PO DAILY 05/01/15 Glipizide (GLIPIZIDE) 5 Mg Tablet, 10 MG PO BID, TAB 05/01/15 Celecoxib* (CELEBREX*) 100 Mg Capsule, 400 MG PO DAILY, #30 CAP 05/01/15 HAMMAD CORTEZ MD Apr 10, 2020 01:26
[2020-04-10 02:09] LABS: BASOPHILS # (AUTO) 0.1 (0.0-0.1); BASOPHILS % 0.6 % (0.0-1.0); EOSINOPHILS # (AUTO) 0.2 (0.0-0.4); HEMATOCRIT 50.3 % (38.2-49.6); HEMOGLOBIN 16.3 g/dL (14.0-18.0); LYMPHOCYTES % 27.5 % (18.0-39.1); MEAN CORPUSCULAR HGB CONC 32.4 g/dL (31-35); MEAN CORPUSCULAR VOLUME 83.4 fL (81-99); MONOCYTES # (AUTO) 0.8 (0.2-0.8); MONOCYTES % 7.6 % (4.4-11.3); NEUTROPHILS # (AUTO) 6.7 (2.1-6.9); PLATELET COUNT 205 x10e3/uL (140-360); RED BLOOD COUNT 6.03 x10e6/uL (4.3-5.7); RED CELL DISTRIBUTION WIDTH 13.9 % (11.7-14.4)
[2020-04-10 02:26] LABS: ANION GAP 14.3 mmol/L (8-16); BLOOD UREA NITROGEN 12 mg/dL (7-26); BUN/CREATININE RATIO 10 (6-25); CALCIUM 9.8 mg/dL (8.4-10.2); CARBON DIOXIDE 21 mmol/L (22-29); CHLORIDE 101 mmol/L (98-107); CREATININE, SERUM 1.19 mg/dL (0.72-1.25); EST GLOMERULAR FILTRATION RATE > 60 ML/MIN (60-); POTASSIUM 4.3 mmol/L (3.5-5.1); SODIUM 132 mmol/L (136-145)
[2020-04-10 02:49] LABS: GLUCOSE 554 mg/dL (74-118)
[2020-04-10] MEDS ORDERED: INSULIN REGULAR, HUMAN 100 UNIT/1 ML 3ML VIAL SQ ONE ×2 (03:00→05:00)
[2020-04-10] MEDS ORDERED: SODIUM CHLORIDE 0.9% 1000ML 1,000 ML IV ONE (03:00)
[2020-04-10] MEDS ORDERED: IOPAMIDOL 370 MG/ML 200 ML INFUS..BTL INJ ONE (03:14)
[2020-04-10] MEDS ORDERED: SODIUM CHLORIDE 0.9% 50ML 50 ML ONE (03:14)
--- NOTE | 2020-04-10 04:44 | Diagnostic Imaging Report ---
EXAMINATION: Head CT and temporal bone with contrast. HISTORY:Evaluate for mastoiditis, fever, redness, bump and swelling behind ear for 2 days. COMPARISON:MRI brain from 01/08/2018. TECHNIQUE: Multidetector axial images were obtained from the foramen magnum to the vertex with contrast. The images were reconstructed using brain and bone algorithms. Thin section brain images were reformatted into coronal and sagittal planes. Axial, coronal and sagittal images through the temporal bones. Dose modulation, iterative reconstruction, and/or weight based adjustment of the mA/kV was utilized to reduce the radiation dose to as low as reasonably achievable. Intravenous contrast: 100 mL of Isovue-370. FINDINGS: CT head: Skull: Nonspecific mild bilateral temporal scalp and retromastoid subcutaneous soft tissue edema. No discrete peripheral rim-enhancing fluid collection. Mild right periauricular soft tissue inflammatory changes. No lytic or blastic lesions. No surgical changes. Parenchyma: No abnormal density. No hemorrhage, mass or acute major vascular territorial infarct. No abnormal enhancement. Arteries: No density suggestive of thrombosis. Dural sinuses: No abnormal density suggestive of thrombosis. Ventricles: No hydrocephalus or displacement. Extra-axial spaces: No abnormal density. Brain volume: Normal for age. Craniocervical junction: No mass, Chiari malformation, or basilar invagination. Sella: No mass. Paranasal/mastoid sinuses: Moderate polypoid mucosal thickening in right maxillary sinus. Small polypoid mucosal thickening in left maxillary sinus. CT Temporal Bones: External auditory canal: Clear and patent Tympanic membrane: Barely visualized and unremarkable. Middle ear and mastoid cavities: Clear. Mastoid air cells: Clear Ossicles: The malleus, incus and stapes are grossly intact. Cochlea, vestibule, internal acoustic canals: Grossly intact. Semicircular canals: Grossly intact. Not dehiscent. Endolymphatic ducts: Normal in size. No dilated. Petrous apices: Unremarkable, not aerated. Facial canals: No abnormalities in the labyrinthine, tympanic or mastoid segments of the facial nerve,. IMPRESSION: CT head and temporal bone: 1. Mild bilateral temporal scalp and right periauricular soft tissue cellulitis. No discrete abscess. 2. No acute intracranial abnormality. 3. Polypoid mucosal thickening in right more than left maxillary sinuses. 4. No signs of acute mastoiditis. Signed by: Dr. Jie Morrison M.D. on 04/10/2020 4:40 AM
--- NOTE | 2020-04-10 04:48 | NUR ---
BEDSIDE GLUCOSE 442; ER MD NOTIFIED AND AWARE.
[2020-04-10] MEDS ORDERED: INSULIN REGULAR, HUMAN 100 UNIT/1 ML 3ML VIAL IV ONE (05:00)
[2020-04-10] MEDS ORDERED: VANCOMYCIN 1GM/NS 250 ML 250 ML IV ONE (05:00)
== END 2020-04-10 07:46 | disposition home or self-care (01) ==
LOC: ER 00:02
DX: L03.811 Cellulitis of head [any part, except face] (principal); E11.65 Type 2 diabetes mellitus with hyperglycemia; F41.9 Anxiety disorder, unspecified; K21.9 Gastro-esophageal reflux disease without esophagitis
CPT/HCPCS: 36415; 70460; 80048; 82948; 85025; 99284; J1817; J3370; J7030; Q9967

== ENCOUNTER → 2022-04-19 | Outpatient (CLI) | payer MEDICARE | LOC: MRI 12:45 | PROVIDERS: ATTEND Family Medicine | DX: R51.9 Headache, unspecified (principal); M54.2 Cervicalgia ==